=== PATIENT | male | born 1975 | race Caucasian/White ===

== ENCOUNTER → 2017-04-06 | Day surgery (SDC) | payer BC ==
[~2017-04-06] VITALS: Ht 182.9 cm; Wt 90.5 kg
[~2017-04-06] MED LIST: *MEPERIDINE 25 MG INJ VIAL PERIprocedural Use ONLY ONE; BENZ100 PO; BROMSYP PO; CHLORHEXIDINE GLUCONATE 2 % 1 PACK (2 CLOTHS) TOPICAL PRN; CLINDAMYCIN 600 MG/NS 100 ML IV SCH; DOXY100C PO; FAMOTIDINE 20 MG/2 ML VIAL ONE; FLUT1SPR5 EACH NARE; HYDR-3516 PO; LACTATED RINGER'S 1000 ML IV PRN; LIDOCAINE 1%/EPINEPHrine 1:100,000 SOLN 20 ML VIAL ONE; MEDR4PAK PO; METOPROLOL TARTRATE 25 MG TAB PO PRN; MIDAZOLAM HCL 2 MG/2 ML VIAL ONE; OXYMETAZOLINE HCL 0.05% 15 ML NASAL SPRAY ONE; POVIDONE IODINE 5% (ANTISEPSIS KIT) 4 APPLICATIONS EACH NARE PRN; SODIUM CHLORID 0.9% 500 ML IV PRN; [UNRECOGNIZED DRUG - OTHER]
[2017-04-06 11:58] VITALS: PULSE 84
[2017-04-06 12:45] VITALS: PULSE 85; TEMP 98.1
[2017-04-06 13:35] VITALS: BP 144/92; PULSE 74; RESP 16; O2SAT 97
--- NOTE | 2017-04-15 07:02 | MP ---
cc: YAQUELIN LINO M.D. DATE OF SURGERY 04/06/[address] Yaquelin lino PREOPERATIVE DIAGNOSIS 1. Nasal airway obstruction 2. Nasal septal deviation 3. Hypertrophy of inferior turbinates 4. Chronic sinus headache POSTOPERATIVE DIAGNOSIS 1. Nasal airway obstruction 2. Nasal septal deviation 3. Hypertrophy of inferior turbinates 4. Chronic sinus headache OPERATION PERFORMED 1. Open repair nasal septal fracture. 2. Bilateral submucosal resection of inferior turbinates. INDICATIONS The indications are documented in the history and physical. DESCRIPTION OF OPERATION The patient was taken to OR #2 and placed in the supine position. Following induction of general anesthesia and intubation, the nose was packed bilaterally with cotton pledgets saturated in 0.05 Oxymetazoline. The septal mucosa and inferior turbinates were injected with a total of 10 mL of 1% Xylocaine with epinephrine 1:100,000. He was then prepped and draped for surgery. The packing was removed and a hemitransfixion incision was made in the left nasal vestibule. Through this incision, the septal mucosa was elevated bilaterally as far as the junction of the bony and cartilaginous septum. This exposed the quadrangular cartilage which showed evidence of old septal fracture which was very thick, twisted, and irregular with numerous points and spurs projecting bilaterally obstructing the nasal airway. A cumulative area of 2 x 3 cm was removed preserving 1.5 cm dorsal and caudal cartilaginous struts. Next, the mucosa was elevated from the bony septum and the maxillary crest and these were removed using Faust Dodd forceps and a [place] Jarrell septal forceps on the bony septum and a 6-mm [place] chisel on the maxillary crest. The anterior nasal spine was preserved during this process. The incision was then closed with a running suture of 4-0 chromic and the mucosal layers of septum were approximated to each other with a quilting stitch of 4-0 plain gut. The inferior turbinates were then fractured out medially and stab incisions made along their inferior surfaces. Through these incisions, submucosal soft tissue was reduced using a curette and preserving the conchal bone. The incision was then cauterized using the suction Bovie at 35 alexis and the remnants of the inferior turbinates were then we lateralized to the lateral nasal wall. The nose was then packed bilaterally with 7.5 cm rapid rhino packs each one filled with 7 mL of air and the procedure was terminated. The patient was then reversed from anesthesia and taken to recovery in good condition. There were no complications. Blood loss was 60 mL. MD ANNITA Oakley/MAURICE /1:53 PM /6:48 AM
== END | disposition home or self-care (01) ==
LOC: PHSDC 07:59
PROVIDERS: ATTEND Otolaryngology
DX: J98.8 Other specified respiratory disorders (principal); J32.9 Chronic sinusitis, unspecified; R51 Headache; J34.3 Hypertrophy of nasal turbinates
CPT/HCPCS: 00160; 30140; 30520; J2175; J2250; J7120

== ENCOUNTER 2017-05-15 04:19 | Emergency (ER) | payer BC, OTHER ==
[~2017-05-15 04:19] MED LIST changes: -*MEPERIDINE 25 MG INJ VIAL PERIprocedural Use ONLY ONE; -BENZ100 PO; -CHLORHEXIDINE GLUCONATE 2 % 1 PACK (2 CLOTHS) TOPICAL PRN; -CLINDAMYCIN 600 MG/NS 100 ML IV SCH; -FAMOTIDINE 20 MG/2 ML VIAL ONE; -FLUT1SPR5 EACH NARE; -LACTATED RINGER'S 1000 ML IV PRN; -LIDOCAINE 1%/EPINEPHrine 1:100,000 SOLN 20 ML VIAL ONE; -MEDR4PAK PO; -METOPROLOL TARTRATE 25 MG TAB PO PRN; -MIDAZOLAM HCL 2 MG/2 ML VIAL ONE; -OXYMETAZOLINE HCL 0.05% 15 ML NASAL SPRAY ONE; -POVIDONE IODINE 5% (ANTISEPSIS KIT) 4 APPLICATIONS EACH NARE PRN; -SODIUM CHLORID 0.9% 500 ML IV PRN
[2017-05-15 04:21] VITALS: BP 156/108; PULSE 104; RESP 18; TEMP 98; O2SAT 99
--- NOTE | 2017-05-15 04:55 | RADRPT ---
EXAM DATE/TIME: 05/15/2017 04:41 [place] COMPARISON: No previous studies available for comparison. 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 MEDICAL HISTORY : None. SURGICAL HISTORY : None. ENCOUNTER: Initial ACUITY: 1 day PAIN SCORE: 7/10 LOCATION: Left Hand FINDINGS: Three view examination of the left hand demonstrates no soft tissue swelling, dislocation, or fractur e. The carpal bones appear intact. The interphalangeal and metacarpophalangeal joints are intact. Bony mineralization is normal. CONCLUSION: Normal examination for a patient of this age. Charles Cope MD on May 15, 2017 at 4:51 Board Certified Radiologist. This report was verified electronically.
[2017-05-15] MEDS ORDERED: IBUP1TAB7 PO (05:03)
--- NOTE | 2017-05-15 05:03 | PD ---
HPI Chief Complaint: Injury Time Seen by Provider: 04:59 Travel History International Travel<30 days: No Contact w/Intl Traveler<30days: No Traveled to known affect area: No History of Present Illness HPI 41-year-old male presents to emergency department for evaluation of left thumb pain. Patient was working when his hand folded underneath itself when he ran into a door. He has been reporting pain at the base of his left thumb extending into his lateral wrist. It is a soreness, moderate in severity. Denies any alterations in sensation. States that he feels that he cannot get a good rug cleaner. No other symptoms to report at this time. PFSH Past Medical History Medical History: Denies Significant Hx Cancer: No Cardiovascular Problems: No Diabetes: No Diminished Hearing: No Endocrine: No Genitourinary: No Hepatitis: No Hiatal Hernia: No Immune Disorder: No Musculoskeletal: No Neurologic: No Psychiatric: No Reproductive: No Respiratory: No Thyroid Disease: No Past Surgical History Abdominal Surgery: No AICD: No Body Medical Devices: LEFT TIBIA OR FIBULA Cardiac Surgery: No Ear Surgery: No Endocrine Surgery: No Eye Surgery: No Genitourinary Surgery: No Gynecologic Surgery: No Joint Replacement: No Oral Surgery: No Pacemaker: No Thoracic Surgery: No Other Surgery: Yes Social History Alcohol Use: No Tobacco Use: No (never) Substance Use: No Allergies-Medications (Allergen,Severity, Reaction): Coded Allergies: Sulfa (Sulfonamide Antibiotics) (Unverified Adverse Reaction, Severe, crynotic, 05/10/17) erythromycin base (Unverified Adverse Reaction, Severe, crynotic, 05/10/17) penicillin G (Unverified Adverse Reaction, Mild, 05/10/17) Not sure what the reaction is. He was a baby. Reported Meds & Prescriptions Reported Meds & Active Scripts Active Doxycycline Hyclate 100 Mg Cap 200 Mg PO DAILY Bromfed DM Liq (Jglioolnfxwildg-Slufdqsqfgonrjn-QA Liq) 30-2-10 Mg/5 Ml Syrp 5 Ml PO Q6H PRN Reported Hydrocodone-Acetaminophen 5-325 mg Tab 1-2 Tab PO Q4H PRN [Ce] Review of Systems Except as stated in HPI: all other systems reviewed are Neg Physical Exam Narrative GENERAL: Well-nourished, well-developed male patient in no acute distress.. SKIN: Focused skin assessment warm/dry. HEAD: Normocephalic. EYES: No scleral icterus. No injection or drainage. NECK: Supple, trachea midline. No JVD or lymphadenopathy. CARDIOVASCULAR: Regular rate s. RESPIRATORY: No accessory muscle use. MUSCULOSKELETAL: No cyanosis, or edema. Tenderness elicited palpation of the base of the left thumb. No obvious deformity. Patient has full range of motion. Cap refill within normal limits. Distal pulses are palpable Data Data Last Documented VS Vital Signs Date Time Temp Pulse Resp B/P (MAP) Pulse Ox O2 Delivery O2 Flow Rate FiO2 05/15/17 04:21 98.0 104 18 156/108 (124) 99 Room Air Orders Orders Hand, Complete ([id number]) (05/15/17 ) MDM Medical Decision Making Medical Screen Exam Complete: Yes Emergency Medical Condition: Yes Medical Record Reviewed: Yes Differential Diagnosis Sprain versus fracture versus dislocation versus contusion Narrative Course 41-year-old male presents to emergency department for evaluation of left thumb pain. Patient appears without distress. Vital signs are stable. X-ray imaging is negative for acute bony abnormality. Patient is encouraged to apply ice and elevate. He is prescribed NSAID pain control. He agrees to return immediately with any acute worsening symptoms. Diagnosis Primary Impression: Left thumb sprain Qualified Codes: S63.642A - Sprain of metacarpophalangeal joint of left thumb , initial encounter Referrals: Primary Care Physician Patient Instructions: General Instructions, Skier's Thumb (ED) Additional Instructions: Ice and elevate to reduce pain and swelling Darvin wrap for support and compression Follow-up with her primary care provider [facility] and specialty if symptoms persist Return immediately to the emergency department with any acute worsening symptoms Med/Other Pt SpecificInfo: Prescription(s) given Scripts Ibuprofen (Ibuprofen) 800 Mg Tab 800 MG PO Q8H Y for Pain/Inflammation, #30 TAB 0 Refills Prov: La Venegas 05/15/17 Disposition: 01 DISCHARGE HOME Condition: Stable La Venegas May 15, 2017 05:03
== END 2017-05-15 06:08 | disposition home or self-care (01) ==
LOC: NED 04:19
DX: S63.642A Sprain of metacarpophalangeal joint of left thumb, initial encounter (principal); W22.8XXA Striking against or struck by other objects, initial encounter; Z88.2 Allergy status to sulfonamides; Z88.1 Allergy status to other antibiotic agents; Z88.0 Allergy status to penicillin; Z79.899 Other long term (current) drug therapy
CPT/HCPCS: 73130; 99283

== ENCOUNTER 2017-08-21 21:33 | Emergency (ER) | payer BC, OTHER ==
[~2017-08-21 21:33] MED LIST changes: +IBUP1TAB7 PO
[2017-08-21] MEDS ORDERED: CEPH-459 PO (21:44)
[2017-08-21 21:49] VITALS: BP 157/99; PULSE 93; RESP 16; TEMP 98.4; O2SAT 96
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
[2017-08-22] MEDS ORDERED: MUPI2OIN TOPICAL (00:37)
[2017-08-22] MEDS ORDERED: CLIN300C5 PO (00:37)
== END 2017-08-22 01:45 | disposition home or self-care (01) ==
LOC: NEDAMB 21:33
DX: L03.113 Cellulitis of right upper limb (principal); W50.4XXA Accidental scratch by another person, initial encounter; Z88.2 Allergy status to sulfonamides; Z88.1 Allergy status to other antibiotic agents; Z88.0 Allergy status to penicillin; Z79.899 Other long term (current) drug therapy
CPT/HCPCS: 99283